=== PATIENT | male | born 1995 | race Hispanic/Latino ===

== ENCOUNTER 2024-12-21 10:42 | Emergency (ER) | payer SELFPAY ==
--- NOTE | ~2024-12-21 | XR_ITS ---
EXAMINATION: XR hand RT min 3V DATE: 12/21/2024 11:48 INDICATION: Fifth metacarpal injury TECHNIQUE: Posteroanterior, oblique and lateral views of the right hand were obtained. COMPARISON: None. FINDINGS: There are old healed fracture deformities of the right fourth and fifth metacarpals which have healed with approximately 25 and 45 degree palmar angulation respectively. There is a superimposed nondispl aced acute fracture at the mid diaphysis of the fifth metacarpal at the site of the earlier healed fr acture with minimal additional palmar angulation. Remaining bones are unremarkable. Joint spaces are normal. Soft tissue swelling at the dorsal and volar side of the hand. IMPRESSION: 1. Nondisplaced mid diaphyseal fracture of the right fifth metacarpal superimposed on earlier healed fracture with minimal increase in the moderate palmar angulation resulting from the earlier healed fr acture with 2. Old fourth metacarpal fracture also healed with mild to moderate palmar angulation. Reviewed, dictated and finalized at location B. [facility] [employer] [facility] IMPRESSION: 1. Nondisplaced mid diaphyseal fracture of the right fifth metacarpal superimpo sed on earlier healed fracture with minimal increase in the moderate palmar ang ulation resulting from the earlier healed fracture with 2. Old fourth metacarpal fracture also healed with mild to moderate palmar angu lation.
[2024-12-21 11:56] VITALS: BP 149/88; PULSE 87; RESP 18; TEMP 36.6; O2SAT 100
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
[2024-12-21 12:39] VITALS: BP 155/108; PULSE 83; RESP 17; O2SAT 100
== END 2024-12-21 12:40 | disposition home or self-care (01) ==
PROVIDERS: Emergency Provider Emergency Medicine
DX: S62.306A Unspecified fracture of fifth metacarpal bone, right hand, initial encounter for closed fracture (principal); W22.09XA Striking against other stationary object, initial encounter
CPT/HCPCS: 29125; 73130; 99284